=== PATIENT | male | born 1945 | race Caucasian/White ===

== ENCOUNTER 2016-09-23 09:20 | Outpatient (RCR) | payer SELFPAY | END 2016-09-25 | LOC: M CR 09:20 | PROVIDERS: ATTEND Nurse Practitioner Adult Health | DX: Z51.89 Encounter for other specified aftercare (principal); I48.0 Paroxysmal atrial fibrillation; Z95.1 Presence of aortocoronary bypass graft ==

== ENCOUNTER → 2016-11-26 | Outpatient (REF) | payer MEDICARE ==
[2016-11-26 13:17] LABS: BASO % 0.2 % (0.0-1.0); EOS # 0.2 K/mm3 (0.0-0.50); EOS % 2.3 % (0.0-3.0); LARGE UNSTAINED CELL # 0.2 K/mm3 (0.0-0.4); LARGE UNSTAINED CELL % 2.8 % (0.0-4.0); LYMPH # 1.5 K/mm3 (1.5-4.5); LYMPH % 23.4 % (24.0-44.0); MEAN CORPUSCULAR HEMOGLOBIN 32.7 pg (27.0-33.0); MEAN CORPUSCULAR HGB CONC 33.6 g/dl (32.0-36.5); MEAN CORPUSCULAR VOLUME 97.4 fl (80.0-96.0); MONO # 0.7 K/mm3 (0.0-0.8); MONO % 10.5 % (0.0-5.0); NEUTROPHILS % 60.8 % (36.0-66.0); PLATELET COUNT, AUTOMATED 250 k/mm3 (150-450); RED CELL DISTRIBUTION WIDTH 12.4 % (11.5-14.5); WHITE BLOOD COUNT 6.5 K/mm3 (4.0-10.0)
[2016-11-26 13:35] LABS: ALBUMIN/GLOBULIN RATIO 1.29 (1.00-1.93); ALKALINE PHOSPHATASE 84 U/L (45-117); ALT/SGPT 28 U/L (12-78); ANION GAP 7 MEQ/L (8-16); AST/SGOT 16 U/L (15-37); BILIRUBIN,TOTAL 0.8 MG/DL (0.2-1.0); BLOOD UREA NITROGEN 14 MG/DL (7-18); CALCIUM LEVEL 8.8 MG/DL (8.8-10.2); CARBON DIOXIDE LEVEL 31 MEQ/L (21-32); CHLORIDE LEVEL 104 MEQ/L (98-107); CHOLESTEROL LEVEL 140 MG/DL (<200); CREATININE FOR GFR 0.88 MG/DL (0.70-1.30); GLOMERULAR FILTRATION RATE > 60.0 (>42); GLUCOSE, FASTING 89 MG/DL (83-110); POTASSIUM SERUM 4.6 MEQ/L (3.5-5.1); SODIUM LEVEL 142 MEQ/L (136-145); TOTAL PROTEIN 7.1 GM/DL (6.4-8.2); TRIGLYCERIDES LEVEL 78 MG/DL (<150)
== END ==
LOC: M SFHCPLAZ 07:58
PROVIDERS: ATTEND Physician Assistant Medical
DX: E78.4 Other hyperlipidemia (principal); I10 Essential (primary) hypertension

== ENCOUNTER 2016-12-11 10:36 | Outpatient (RCR) | payer MEDICARE | END 2016-12-25 | LOC: M CR 10:36 | PROVIDERS: ATTEND Nurse Practitioner Adult Health | DX: Z51.89 Encounter for other specified aftercare (principal); Z95.1 Presence of aortocoronary bypass graft ==

== ENCOUNTER 2017-03-10 10:18 | Outpatient (RCR) | payer SELFPAY | END 2017-03-27 | LOC: M CR 10:18 | PROVIDERS: ATTEND Nurse Practitioner Adult Health | DX: Z51.89 Encounter for other specified aftercare (principal); I25.810 Atherosclerosis of coronary artery bypass graft(s) without angina pectoris ==

== ENCOUNTER 2017-06-02 12:06 | Outpatient (RCR) | payer SELFPAY | END 2017-06-27 | LOC: M CR 12:06 | DX: Z95.1 Presence of aortocoronary bypass graft (principal) ==

== ENCOUNTER 2017-10-13 09:22 | Outpatient (RCR) | payer SELFPAY | END 2017-10-25 | LOC: M CR 09:22 | DX: Z95.1 Presence of aortocoronary bypass graft (principal) ==

== ENCOUNTER → 2017-10-27 | Outpatient (REF) | payer BC, MEDICARE ==
[2017-10-27 13:31] LABS: ALBUMIN/GLOBULIN RATIO 1.18 (1.00-1.93); ALKALINE PHOSPHATASE 110 U/L (45-117); ALT/SGPT 24 U/L (12-78); ANION GAP 8 MEQ/L (8-16); AST/SGOT 12 U/L (7-37); BILIRUBIN,TOTAL 0.6 MG/DL (0.2-1.0); BLOOD UREA NITROGEN 13 MG/DL (7-18); CALCIUM LEVEL 8.7 MG/DL (8.8-10.2); CARBON DIOXIDE LEVEL 28 MEQ/L (21-32); CHLORIDE LEVEL 105 MEQ/L (98-107); CREATININE FOR GFR 0.96 MG/DL (0.70-1.30); GLOMERULAR FILTRATION RATE > 60.0 (>42); GLUCOSE, FASTING 138 MG/DL (70-100); POTASSIUM SERUM 4.1 MEQ/L (3.5-5.1); SODIUM LEVEL 141 MEQ/L (136-145); TOTAL PROTEIN 7.4 GM/DL (6.4-8.2)
== END ==
LOC: M SFHCADAM 09:13
DX: R19.7 Diarrhea, unspecified (principal)
CPT/HCPCS: 80053

== ENCOUNTER → 2017-11-29 | Outpatient (REF) | payer BC ==
[2017-11-29 12:09] LABS: BASO % 0.3 % (0.0-1.0); EOS # 0.2 10^3/uL (0.0-0.50); EOS % 2.6 % (0.0-3.0); HEMATOCRIT 42.1 % (42.0-52.0); HEMOGLOBIN 14.2 g/dl (13.5-17.5); IMMATURE GRANULOCYTE % 0.3 % (0-3.0); LYMPH # 1.3 10^3/uL (1.5-4.5); LYMPH % 19.1 % (24.0-44.0); MEAN CORPUSCULAR HEMOGLOBIN 32.3 pg (27.0-33.0); MEAN CORPUSCULAR HGB CONC 33.7 g/dl (32.0-36.5); MEAN CORPUSCULAR VOLUME 95.7 fl (80.0-96.0); MONO # 0.9 10^3/uL (0.0-0.8); MONO % 13.1 % (0.0-5.0); NEUTROPHILS # 4.2 10^3/uL (1.8-7.7); NEUTROPHILS % 64.6 % (36.0-66.0); PLATELET COUNT, AUTOMATED 209 10^3/uL (150-450); RED CELL DISTRIBUTION WIDTH 12.4 % (11.5-14.5); WHITE BLOOD COUNT 6.6 10^3/uL (4.0-10.0)
[2017-11-29 12:50] LABS: ALBUMIN 3.9 GM/DL (3.2-5.2); ALBUMIN/GLOBULIN RATIO 1.26 (1.00-1.93); ALKALINE PHOSPHATASE 86 U/L (45-117); ALT/SGPT 25 U/L (12-78); ANION GAP 6 MEQ/L (8-16); AST/SGOT 15 U/L (7-37); BILIRUBIN,TOTAL 0.8 MG/DL (0.2-1.0); BLOOD UREA NITROGEN 16 MG/DL (7-18); CARBON DIOXIDE LEVEL 31 MEQ/L (21-32); CHLORIDE LEVEL 106 MEQ/L (98-107); CHOLESTEROL LEVEL 117 MG/DL (<200); CHOLESTEROL RISK RATIO 3.656 (<5); CREATININE FOR GFR 1.02 MG/DL (0.70-1.30); GLOMERULAR FILTRATION RATE > 60.0 (>42); GLUCOSE, FASTING 100 MG/DL (70-100); HDL CHOLESTEROL 32 MG/DL (>40); LDL CHOLESTEROL 74.8 MG/DL (<100); NON-HDL-C 85 MG/DL; POTASSIUM SERUM 4.9 MEQ/L (3.5-5.1); SODIUM LEVEL 143 MEQ/L (136-145); TRIGLYCERIDES LEVEL 51 MG/DL (<150)
[2017-11-29 13:04] LABS: TOTAL 25(OH) VITAMIN D 21.1 NG/ML (30.0-100.0)
[2017-11-29 13:59] LABS: ESTIMATED AVERAGE GLUCOSE 117 MG/DL (60-110); HEMOGLOBIN A1c 5.7 %
== END ==
LOC: M SFHCADAM 10:37
DX: I25.10 Atherosclerotic heart disease of native coronary artery without angina pectoris (principal); E78.4 Other hyperlipidemia
CPT/HCPCS: 84443

== ENCOUNTER 2018-01-19 12:54 | Outpatient (RCR) | payer SELFPAY | END 2018-01-25 | LOC: M CR 12:54 | DX: Z51.89 Encounter for other specified aftercare (principal); I25.810 Atherosclerosis of coronary artery bypass graft(s) without angina pectoris ==

== ENCOUNTER → 2018-03-07 | Outpatient (REF) | payer OTHER ==
[2018-03-08 01:12] LABS: PROSTATIC SPECIFIC AG MONITOR < 0.01 NG/ML (< 4.0)
== END ==
LOC: M LABDRWAD 12:17
DX: Z85.46 Personal history of malignant neoplasm of prostate (principal)

== ENCOUNTER → 2018-03-28 | Outpatient (CLI) | payer MEDICARE, SELFPAY | LOC: M CARPUL 10:17 | DX: I25.10 Atherosclerotic heart disease of native coronary artery without angina pectoris (principal); I34.0 Nonrheumatic mitral (valve) insufficiency; I10 Essential (primary) hypertension | CPT/HCPCS: 93306 ==

== ENCOUNTER 2018-04-15 11:04 | Outpatient (RCR) | payer MEDICARE | END 2018-04-27 | LOC: M CR 11:04 | DX: Z95.1 Presence of aortocoronary bypass graft (principal) ==

== ENCOUNTER 2018-08-05 09:00 | Outpatient (RCR) | payer MEDICARE ==
[~2018-08-05 09:00] MED LIST: ASPI81TA85 PO; ATOR1TAB21 PO; DIGO0.127 PO; DIGO0.2556 IV; FAMO20TA PO; LASI20TA3 PO; METO1TAB32 PO; POTA10TA67 PO; TAB-TAB PO; XARE20TA PO
== END 2018-08-25 ==
LOC: M CR 09:00
PROVIDERS: ATTEND Nurse Practitioner Adult Health
DX: I25.810 Atherosclerosis of coronary artery bypass graft(s) without angina pectoris (principal)

== ENCOUNTER → 2018-11-25 | Outpatient (REF) | payer BC ==
[2018-11-25 13:21] LABS: BASO % 0.5 % (0.0-1.0); EOS # 0.2 10^3/uL (0.0-0.50); HEMATOCRIT 41.9 % (42.0-52.0); HEMOGLOBIN 13.7 g/dl (13.5-17.5); LYMPH # 1.2 10^3/uL (1.5-4.5); LYMPH % 17.8 % (24.0-44.0); MEAN CORPUSCULAR HEMOGLOBIN 31.9 pg (27.0-33.0); MEAN CORPUSCULAR HGB CONC 32.7 g/dl (32.0-36.5); MEAN CORPUSCULAR VOLUME 97.7 fl (80.0-96.0); MONO # 0.9 10^3/uL (0.0-0.8); MONO % 13.4 % (0.0-5.0); NEUTROPHILS # 4.3 10^3/uL (1.8-7.7); PLATELET COUNT, AUTOMATED 196 10^3/uL (150-450); RED BLOOD COUNT 4.29 10^6/uL (4.30-6.10); WHITE BLOOD COUNT 6.6 10^3/uL (4.0-10.0)
[2018-11-25 13:22] LABS: ALBUMIN 3.5 GM/DL (3.2-5.2); ALT/SGPT 41 U/L (12-78); BILIRUBIN,TOTAL 0.7 MG/DL (0.2-1.0); BLOOD UREA NITROGEN 17 MG/DL (7-18); CALCIUM LEVEL 8.9 MG/DL (8.8-10.2); CARBON DIOXIDE LEVEL 32 MEQ/L (21-32); CHLORIDE LEVEL 108 MEQ/L (98-107); CHOLESTEROL LEVEL 121 MG/DL (<200); CHOLESTEROL RISK RATIO 4.033 (<5); CREATININE FOR GFR 0.99 MG/DL (0.70-1.30); GLOMERULAR FILTRATION RATE > 60.0 (>42); GLUCOSE, FASTING 96 MG/DL (70-100); HDL CHOLESTEROL 30 MG/DL (>40); LDL CHOLESTEROL 75 MG/DL (<100); NON-HDL-C 91 MG/DL; POTASSIUM SERUM 4.9 MEQ/L (3.5-5.1); SODIUM LEVEL 144 MEQ/L (136-145); TOTAL PROTEIN 6.9 GM/DL (6.4-8.2); TRIGLYCERIDES LEVEL 81 MG/DL (<150)
[2018-11-25 13:50] LABS: TOTAL 25(OH) VITAMIN D 41.7 NG/ML (30.0-100.0)
[2018-11-25 13:51] LABS: HEMOGLOBIN A1c 6.1 %
== END ==
LOC: M SFHCADAM 07:46
PROVIDERS: ATTEND Physician Assistant Medical
DX: I25.10 Atherosclerotic heart disease of native coronary artery without angina pectoris (principal); E78.49 Other hyperlipidemia; I10 Essential (primary) hypertension

== ENCOUNTER → 2019-01-06 | Outpatient (REF) | payer BC ==
[2019-01-06 19:23] LABS: BLOOD UREA NITROGEN 16 MG/DL (7-18); CREATININE FOR GFR 1.21 MG/DL (0.70-1.30); GLOMERULAR FILTRATION RATE > 60.0 (>42)
== END ==
LOC: M LABDRWAD 19:05
PROVIDERS: ATTEND Nurse Practitioner Adult Health
DX: Z85.46 Personal history of malignant neoplasm of prostate (principal)

== ENCOUNTER 2019-01-20 11:34 | Outpatient (RCR) | payer SELFPAY | END 2019-01-25 | LOC: M CR 11:34 | PROVIDERS: ATTEND Nurse Practitioner Adult Health | DX: Z95.1 Presence of aortocoronary bypass graft (principal) ==

== ENCOUNTER 2019-04-14 10:49 | Outpatient (RCR) | payer SELFPAY | END 2019-04-27 | LOC: M CR 10:49 | PROVIDERS: ATTEND Nurse Practitioner Adult Health | DX: Z95.1 Presence of aortocoronary bypass graft (principal) ==

== ENCOUNTER 2019-07-26 09:28 | Outpatient (RCR) | payer MEDICARE | END 2019-07-28 | LOC: M CR 09:28 | PROVIDERS: ATTEND Nurse Practitioner Adult Health | DX: Z95.1 Presence of aortocoronary bypass graft (principal) ==

== ENCOUNTER 2019-08-09 14:00 | Outpatient (RCR) | payer MEDICARE | END 2019-08-26 | LOC: M CR 14:00 | PROVIDERS: ATTEND Nurse Practitioner Adult Health | DX: Z95.1 Presence of aortocoronary bypass graft (principal) ==

== ENCOUNTER 2019-11-20 19:15 | Emergency (ER) | payer MEDICARE ==
[~2019-11-20] VITALS: Ht 170.2 cm; Wt 85.7 kg
[2019-11-20] MEDS ORDERED: HYDR-3713 PO (19:27)
[2019-11-20 19:55] LABS: BASO % 0.4 % (0.0-1.0); EOS # 0.3 10^3/uL (0.0-0.5); EOS % 3.5 % (0.0-3.0); HEMOGLOBIN 13.8 g/dl (13.5-17.5); LYMPH # 1.8 10^3/uL (1.5-5.0); LYMPH % 24.6 % (24.0-44.0); MEAN CORPUSCULAR HEMOGLOBIN 32.1 pg (27.0-33.0); MEAN CORPUSCULAR HGB CONC 33.7 g/dl (32.0-36.5); MEAN CORPUSCULAR VOLUME 95.3 fl (80.0-96.0); MONO # 0.9 10^3/uL (0.0-0.8); MONO % 12.3 % (0.0-5.0); NEUTROPHILS # 4.4 10^3/uL (1.5-8.5); NEUTROPHILS % 58.8 % (36.0-66.0); PLATELET COUNT, AUTOMATED 201 10^3/uL (150-450); WHITE BLOOD COUNT 7.4 10^3/uL (4.0-10.0)
[2019-11-20 20:06] LABS: INR 2.79; PROTHROMBIN TIME 29.3 SECONDS (11.8-14.0)
[2019-11-20 20:21] LABS: BLOOD UREA NITROGEN 25 MG/DL (7-18); CALCIUM LEVEL 8.3 MG/DL (8.8-10.2); CARBON DIOXIDE LEVEL 30 MEQ/L (21-32); CHLORIDE LEVEL 104 MEQ/L (98-107); CK-MB VALUE MASS 3.6 NG/ML (<3.6); CPK CREATINE PHOSPHOKINASE 155 U/L (39-308); GLOMERULAR FILTRATION RATE > 60.0 (>42); GLUCOSE, FASTING 200 MG/DL (70-100); MB/CK RELATIVE INDEX 2.32 (< OR =4); SODIUM LEVEL 141 MEQ/L (136-145); TROPONIN I 0.02 NG/ML (< 0.10)
[2019-11-20] MEDS ORDERED: ISOVUE-370 76% 100ML VIAL As Ordered ONE (20:27)
[2019-11-20] MEDS ORDERED: NS 500 ML IV ONE (20:45)
--- NOTE | 2019-11-20 21:17 | REPVR ---
PROCEDURE INFORMATION: Exam: CT Chest With Contrast Exam date and time: 11/20/2019 8:53 PM Age: 74 years old Clinical indication: Injury or trauma; Fall; Initial encounter; Blunt trauma (contusions or hematomas); Additional info: Fall on thinner; Right anterior rib/chest wall pain TECHNIQUE: Imaging protocol: Computed tomography of the chest with intravenous contrast. 3D rendering: MIP and/or 3D reconstructed images were created by the technologist. Radiation optimization: All CT scans at this facility use at least one of these dose optimization techniques: automated exposure control; mA and/or kV adjustment per patient size (includes targeted exams where dose is matched to clinical indication); or iterative reconstruction. Contrast material: ISO 370; Contrast volume: 75 ml; Contrast route: IV; COMPARISON: [place] Chest, 1 view 04/17/2015 9:53 AM FINDINGS: Lungs: Minimal scattered atelectasis or scar. No focal infiltrates. Pleural space: Unremarkable. No pneumothorax. No pleural effusion. Heart: Status post sternotomy and CABG. Pulmonary arteries: The main pulmonary artery measures 31 mm. Aorta: The ascending thoracic aorta measures 35 mm. Lymph nodes: Unremarkable. No enlarged lymph nodes. Liver: Probable hepatic cysts measuring up to 12 mm. Gallbladder and bile ducts: The gallbladder is contracted with no stones. Spleen: Minimal splenic calcification. Bones/joints: Fractures of the right 10th rib laterally near the costochondral junction and the right 10th and 11th ribs posteriorly and probably the right 12th rib posteriorly. Soft tissues: Unremarkable. IMPRESSION: 1. Fractures of the right 10th rib laterally near the costochondral junction of the right 10th and 11th ribs posteriorly and probably the right 12th rib posteriorly. 2. Status post sternotomy and CABG. 3. Otherwise negative CT chest. No pneumothorax. Electronically signed by: Aaron Vance On 11/20/2019 21:16:58 PM
[2019-11-20 22:15] VITALS: BP 142/89
[2019-11-20] MEDS ORDERED: TYLETAB14 PO (22:17)
--- NOTE | 2019-11-21 08:00 | ECGEPIP ---
[facility] - ED Test Date: 2019-11-20 Pat Name: XAVI KNIGHT Department: Room: - Gender: Male Manager Telemarketing: [place] : 1945 Requested By: MIKEY Vallejo Order Number: [id number] Reading MD: Garrick Carrillo Measurements Intervals [place] Rate: 77 P: 60 LA: 296 QRS: 121 QRSD: 161 T: -7 QT: 405 QTc: 461 Interpretive Statements SINUS RHYTHM WITH FIRST DEGREE AV BLOCK INDETERMINATE AXIS RIGHT BUNDLE BRANCH BLOCK LEFT POSTERIOR FASCICULAR BLOCK SIMILAR TO 04/17/15 Electronically Signed on 11-21-2019 8:00:41 EDT by Garrick Carrillo
== END 2019-11-20 22:38 | disposition home or self-care (01) ==
LOC: M ED 19:15
DX: R55 Syncope and collapse (principal); S22.31XA Fracture of one rib, right side, initial encounter for closed fracture; X58.XXXA Exposure to other specified factors, initial encounter; Y92.89 Other specified places as the place of occurrence of the external cause; I45.10 Unspecified right bundle-branch block; I44.5 Left posterior fascicular block; I48.91 Unspecified atrial fibrillation; Z95.1 Presence of aortocoronary bypass graft; Z79.899 Other long term (current) drug therapy; Z79.82 Long term (current) use of aspirin; Z79.01 Long term (current) use of anticoagulants
CPT/HCPCS: 36415; 71260; 80048; 82550; 82553; 84443; 84484; 85025; 85610; 85730; 93005; 93041; 94010; 94760; 99285; Q9967

== ENCOUNTER → 2019-12-11 | Outpatient (REF) | payer BC ==
[~2019-12-11] MED LIST changes: +HYDR-3713 PO; +TYLETAB14 PO
[2019-12-11 13:32] LABS: BASO % 0.6 % (0.0-1.0); EOS # 0.3 10^3/uL (0.0-0.5); EOS % 3.8 % (0.0-3.0); HEMATOCRIT 41.4 % (42.0-52.0); HEMOGLOBIN 13.5 g/dl (13.5-17.5); LYMPH # 1.2 10^3/uL (1.5-5.0); LYMPH % 16.3 % (24.0-44.0); MEAN CORPUSCULAR HEMOGLOBIN 31.7 pg (27.0-33.0); MEAN CORPUSCULAR HGB CONC 32.6 g/dl (32.0-36.5); MEAN CORPUSCULAR VOLUME 97.2 fl (80.0-96.0); MONO # 0.9 10^3/uL (0.0-0.8); MONO % 13.2 % (0.0-5.0); NEUTROPHILS # 4.7 10^3/uL (1.5-8.5); NEUTROPHILS % 65.7 % (36.0-66.0); PLATELET COUNT, AUTOMATED 203 10^3/uL (150-450); RED BLOOD COUNT 4.26 10^6/uL (4.30-6.10); WHITE BLOOD COUNT 7.1 10^3/uL (4.0-10.0)
[2019-12-11 13:56] LABS: ALBUMIN 3.9 GM/DL (3.2-5.2); ALT/SGPT 29 U/L (12-78); BILIRUBIN,TOTAL 0.7 MG/DL (0.2-1.0); BLOOD UREA NITROGEN 16 MG/DL (7-18); CALCIUM LEVEL 8.9 MG/DL (8.8-10.2); CARBON DIOXIDE LEVEL 31 MEQ/L (21-32); CHLORIDE LEVEL 104 MEQ/L (98-107); CHOLESTEROL LEVEL 148 MG/DL (<200); CHOLESTEROL RISK RATIO 4.352 (<5); CREATININE FOR GFR 0.84 MG/DL (0.70-1.30); GLOMERULAR FILTRATION RATE > 60.0 (>42); GLUCOSE, FASTING 84 MG/DL (70-100); HDL CHOLESTEROL 34 MG/DL (>40); LDL CHOLESTEROL 101 MG/DL (<100); NON-HDL-C 114 MG/DL; POTASSIUM SERUM 4.6 MEQ/L (3.5-5.1); SODIUM LEVEL 140 MEQ/L (136-145); TRIGLYCERIDES LEVEL 66 MG/DL (<150)
[2019-12-11 14:07] LABS: MALB URINE SIEMENS < 5.0 MG/L; MAU/CREAT RATIO 4.5 MCG/MG (0.0-30.0)
[2019-12-11 14:40] LABS: HEMOGLOBIN A1c 5.9 %
== END ==
LOC: M SFHCADAM 08:01
PROVIDERS: ATTEND Physician Assistant Medical
DX: I25.10 Atherosclerotic heart disease of native coronary artery without angina pectoris (principal); I10 Essential (primary) hypertension; I48.0 Paroxysmal atrial fibrillation; E78.2 Mixed hyperlipidemia

== ENCOUNTER 2019-12-30 16:46 | Emergency (ER) | payer BC, MEDICARE ==
[~2019-12-30] VITALS: Ht 172.7 cm; Wt 86.2 kg
[~2019-12-30 16:46] MED LIST changes: -ASPI81TA85 PO; +ASPI81TA86 PO; -TAB-TAB PO; +TAB-TAB2 PO
[2019-12-30 17:44] LABS: BASO % 0.6 % (0.0-1.0); EOS # 0.2 10^3/uL (0.0-0.5); EOS % 2.8 % (0.0-3.0); HEMATOCRIT 40.6 % (42.0-52.0); HEMOGLOBIN 13.5 g/dl (13.5-17.5); LYMPH # 1.3 10^3/uL (1.5-5.0); LYMPH % 19.8 % (24.0-44.0); MEAN CORPUSCULAR HEMOGLOBIN 31.9 pg (27.0-33.0); MEAN CORPUSCULAR HGB CONC 33.3 g/dl (32.0-36.5); MONO # 0.9 10^3/uL (0.0-0.8); NEUTROPHILS % 62.5 % (36.0-66.0); PLATELET COUNT, AUTOMATED 180 10^3/uL (150-450); RED BLOOD COUNT 4.23 10^6/uL (4.30-6.10); WHITE BLOOD COUNT 6.4 10^3/uL (4.0-10.0)
[2019-12-30 18:01] LABS: INR 1.09; PARTIAL THROMBOPLASTIN TIME 32.5 SECONDS (25.0-38.4); PROTHROMBIN TIME 13.8 SECONDS (11.8-14.0)
[2019-12-30 18:15] LABS: ALT/SGPT 31 U/L (12-78); BILIRUBIN,DIRECT 0.2 MG/DL (0.0-0.2); BILIRUBIN,TOTAL 0.4 MG/DL (0.2-1.0); BLOOD UREA NITROGEN 16 MG/DL (7-18); CALCIUM LEVEL 8.8 MG/DL (8.8-10.2); CARBON DIOXIDE LEVEL 29 MEQ/L (21-32); CHLORIDE LEVEL 107 MEQ/L (98-107); CREATININE FOR GFR 0.95 MG/DL (0.70-1.30); GLOMERULAR FILTRATION RATE > 60.0 (>42); GLUCOSE, FASTING 104 MG/DL (70-100); LIPASE 123 U/L (73-393); MAGNESIUM LEVEL 2.3 MG/DL (1.8-2.4); NT-PRO BNP 380 PG/ML (<450); POTASSIUM SERUM 4.1 MEQ/L (3.5-5.1); SODIUM LEVEL 143 MEQ/L (136-145); TOTAL PROTEIN 7.3 GM/DL (6.4-8.2)
[2019-12-30] MEDS ORDERED: LABETALOL 100MG/20ML VIAL IV PRN (18:15)
[2019-12-30] MEDS ORDERED: LABETALOL 100MG/20ML VIAL IV ONE (18:15)
--- NOTE | 2019-12-30 18:20 | REP ---
Clinical: Chest pain . Comparison: 04/17/2015 . Findings: The mediastinum and cardiac silhouette are stable and within normal limits for portable technique. Cardiomegaly and sternotomy again noted. Trace left basilar atelectasis suggested. No focal consolidation. No effusion. Impression: Trace left basilar atelectasis suggested. Electronically Signed by Shawn Salinas MD 12/30/2019 06:12 P
[2019-12-30 19:15] VITALS: BP 121/68
--- NOTE | 2019-12-31 06:56 | ECGEPIP ---
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
== END 2019-12-30 19:23 | disposition home or self-care (01) ==
LOC: M ED 16:46
DX: I48.92 Unspecified atrial flutter (principal); I45.10 Unspecified right bundle-branch block; I10 Essential (primary) hypertension; Z95.1 Presence of aortocoronary bypass graft; Z79.899 Other long term (current) drug therapy; Z79.82 Long term (current) use of aspirin; Z79.01 Long term (current) use of anticoagulants

== ENCOUNTER → 2020-02-21 | Outpatient (REF) | payer MEDICARE ==
[2020-02-21 14:25] LABS: BASO % 0.5 % (0.0-1.0); EOS # 0.3 10^3/uL (0.0-0.5); EOS % 3.7 % (0.0-3.0); HEMATOCRIT 45.1 % (42.0-52.0); HEMOGLOBIN 14.6 g/dl (13.5-17.5); LYMPH # 1.5 10^3/uL (1.5-5.0); LYMPH % 20.9 % (24.0-44.0); MEAN CORPUSCULAR HEMOGLOBIN 31.6 pg (27.0-33.0); MEAN CORPUSCULAR HGB CONC 32.4 g/dl (32.0-36.5); MEAN CORPUSCULAR VOLUME 97.6 fl (80.0-96.0); MONO % 13.2 % (0.0-5.0); NEUTROPHILS # 4.5 10^3/uL (1.5-8.5); NEUTROPHILS % 61.3 % (36.0-66.0); PLATELET COUNT, AUTOMATED 221 10^3/uL (150-450); RED BLOOD COUNT 4.62 10^6/uL (4.30-6.10); WHITE BLOOD COUNT 7.3 10^3/uL (4.0-10.0)
[2020-02-21 14:40] LABS: ALT/SGPT 27 U/L (12-78); BILIRUBIN,TOTAL 0.7 MG/DL (0.2-1.0); BLOOD UREA NITROGEN 15 MG/DL (7-18); CALCIUM LEVEL 9.3 MG/DL (8.8-10.2); CARBON DIOXIDE LEVEL 30 MEQ/L (21-32); CHLORIDE LEVEL 108 MEQ/L (98-107); CHOLESTEROL LEVEL 137 MG/DL (<200); CHOLESTEROL RISK RATIO 4.029 (<5); CREATININE FOR GFR 0.96 MG/DL (0.70-1.30); GLOMERULAR FILTRATION RATE > 60.0 (>42); GLUCOSE, FASTING 99 MG/DL (70-100); HDL CHOLESTEROL 34 MG/DL (>40); LDL CHOLESTEROL 89 MG/DL (<100); MAGNESIUM LEVEL 2.4 MG/DL (1.8-2.4); NON-HDL-C 103 MG/DL; POTASSIUM SERUM 4.9 MEQ/L (3.5-5.1); SODIUM LEVEL 143 MEQ/L (136-145); TOTAL PROTEIN 7.1 GM/DL (6.4-8.2); TRIGLYCERIDES LEVEL 69 MG/DL (<150)
== END ==
LOC: M LABDRWAD 13:14
PROVIDERS: ATTEND Internal Medicine Cardiovascular Disease
DX: I48.19 Other persistent atrial fibrillation (principal); E78.00 Pure hypercholesterolemia, unspecified

== ENCOUNTER → 2020-03-06 | Outpatient (REF) | payer MEDICARE | LOC: M LABDRWAD 08:05 | PROVIDERS: ATTEND Nurse Practitioner Adult Health | DX: Z85.46 Personal history of malignant neoplasm of prostate (principal) ==

== ENCOUNTER → 2020-12-13 | Outpatient (REF) | payer MEDICARE ==
[2020-12-13 13:11] LABS: BASO % 0.5 % (0.0-1.0); EOS # 0.2 10^3/uL (0.0-0.5); HEMOGLOBIN 13.8 g/dl (13.5-17.5); LYMPH # 1.5 10^3/uL (1.5-5.0); LYMPH % 23.1 % (24.0-44.0); MEAN CORPUSCULAR HEMOGLOBIN 31.2 pg (27.0-33.0); MEAN CORPUSCULAR HGB CONC 32.1 g/dl (32.0-36.5); MEAN CORPUSCULAR VOLUME 97.3 fl (80.0-96.0); MONO % 15.6 % (2.0-8.0); NEUTROPHILS # 3.6 10^3/uL (1.5-8.5); NEUTROPHILS % 57.5 % (36.0-66.0); PLATELET COUNT, AUTOMATED 189 10^3/uL (150-450); RED BLOOD COUNT 4.42 10^6/uL (4.30-6.10); WHITE BLOOD COUNT 6.3 10^3/uL (4.0-10.0)
[2020-12-13 14:35] LABS: ALBUMIN 3.8 GM/DL (3.2-5.2); ALT/SGPT 39 U/L (12-78); BILIRUBIN,TOTAL 0.8 MG/DL (0.2-1.0); BLOOD UREA NITROGEN 13 MG/DL (7-18); CARBON DIOXIDE LEVEL 31 MEQ/L (21-32); CHLORIDE LEVEL 106 MEQ/L (98-107); CHOLESTEROL LEVEL 116 MG/DL (<200); CHOLESTEROL RISK RATIO 3.625 (<5); CREATININE FOR GFR 0.91 MG/DL (0.70-1.30); GLOMERULAR FILTRATION RATE > 60.0 (>42); GLUCOSE, FASTING 136 MG/DL (70-100); HDL CHOLESTEROL 32 MG/DL (>40); LDL CHOLESTEROL 73 MG/DL (<100); NON-HDL-C 84 MG/DL; POTASSIUM SERUM 4.6 MEQ/L (3.5-5.1); SODIUM LEVEL 140 MEQ/L (136-145); TRIGLYCERIDES LEVEL 56 MG/DL (<150)
== END ==
LOC: M LABDRWAD 12:33
PROVIDERS: ATTEND Internal Medicine Interventional Cardiology
DX: I25.10 Atherosclerotic heart disease of native coronary artery without angina pectoris (principal)

== ENCOUNTER → 2021-01-02 | Outpatient (REF) | payer BC, MEDICARE ==
[2021-01-02 13:45] LABS: HEMOGLOBIN A1c 5.8 %
== END ==
LOC: M SFHCADAM 10:34
PROVIDERS: ATTEND Physician Assistant Medical
DX: Z00.00 Encounter for general adult medical examination without abnormal findings (principal); R73.01 Impaired fasting glucose

== ENCOUNTER → 2021-02-28 | Outpatient (REF) | payer MEDICARE | LOC: M LABDRWAD 10:07 | PROVIDERS: ATTEND Nurse Practitioner Adult Health | DX: Z85.46 Personal history of malignant neoplasm of prostate (principal) ==

== ENCOUNTER → 2021-10-13 | Outpatient (CLI) | payer MEDICARE | LOC: M CARPUL 14:29 | PROVIDERS: ATTEND Internal Medicine Interventional Cardiology | DX: R06.00 Dyspnea, unspecified (principal); I10 Essential (primary) hypertension ==

== ENCOUNTER → 2021-10-17 | Outpatient (CLI) | payer MEDICARE ==
[2021-10-17 12:08] LABS: BASO % 0.5 % (0.0-1.0); EOS # 0.1 10^3/uL (0.0-0.5); EOS % 2.4 % (0.0-3.0); HEMATOCRIT 40.4 % (42.0-52.0); HEMOGLOBIN 13.3 g/dl (13.5-17.5); LYMPH # 1.2 10^3/uL (1.5-5.0); LYMPH % 20.6 % (24.0-44.0); MEAN CORPUSCULAR HEMOGLOBIN 32.5 pg (27.0-33.0); MEAN CORPUSCULAR HGB CONC 32.9 g/dl (32.0-36.5); MEAN CORPUSCULAR VOLUME 98.8 fl (80.0-96.0); MONO # 0.7 10^3/uL (0.0-0.8); MONO % 12.5 % (2.0-8.0); NEUTROPHILS # 3.7 10^3/uL (1.5-8.5); NEUTROPHILS % 63.7 % (36.0-66.0); PLATELET COUNT, AUTOMATED 180 10^3/uL (150-450); RED BLOOD COUNT 4.09 10^6/uL (4.30-6.10); WHITE BLOOD COUNT 5.7 10^3/uL (4.0-10.0)
[2021-10-17 12:16] LABS: BLOOD UREA NITROGEN 13 MG/DL (7-18); CARBON DIOXIDE LEVEL 31 MEQ/L (21-32); CHLORIDE LEVEL 109 MEQ/L (98-107); CREATININE FOR GFR 0.97 MG/DL (0.70-1.30); GLOMERULAR FILTRATION RATE > 60.0 (>42); GLUCOSE, FASTING 169 MG/DL (70-100); NT-PRO BNP 549 PG/ML (<450); POTASSIUM SERUM 4.1 MEQ/L (3.5-5.1); SODIUM LEVEL 144 MEQ/L (136-145)
== END ==
LOC: M ADAMS 07:52
PROVIDERS: ATTEND Nurse Practitioner Adult Health
DX: R06.00 Dyspnea, unspecified (principal); I10 Essential (primary) hypertension

== ENCOUNTER → 2022-02-26 | Outpatient (REF) | payer MEDICARE | LOC: M LABDRWAD 12:36 | PROVIDERS: ATTEND Nurse Practitioner Adult Health | DX: Z85.46 Personal history of malignant neoplasm of prostate (principal) ==

== ENCOUNTER → 2022-09-01 | Outpatient (REF) | payer MEDICARE | LOC: M LABDRWAD 16:08 | PROVIDERS: ATTEND Nurse Practitioner Adult Health | DX: Z85.46 Personal history of malignant neoplasm of prostate (principal) ==

== ENCOUNTER → 2022-10-06 | Outpatient (REF) | payer BC, MEDICARE ==
[2022-10-06 14:56] LABS: BASO % 0.4 % (0.0-1.0); EOS # 0.2 10^3/uL (0.0-0.5); HEMATOCRIT 41.3 % (42.0-52.0); LYMPH # 1.2 10^3/uL (1.5-5.0); LYMPH % 21.5 % (24.0-44.0); MEAN CORPUSCULAR HEMOGLOBIN 31.8 pg (27.0-33.0); MEAN CORPUSCULAR HGB CONC 31.5 g/dl (32.0-36.5); MONO # 0.8 10^3/uL (0.0-0.8); NEUTROPHILS # 3.4 10^3/uL (1.5-8.5); NEUTROPHILS % 59.9 % (36.0-66.0); PLATELET COUNT, AUTOMATED 143 10^3/uL (150-450); RED BLOOD COUNT 4.09 10^6/uL (4.30-6.10); WHITE BLOOD COUNT 5.6 10^3/uL (4.0-10.0)
[2022-10-06 15:00] LABS: ALBUMIN 3.9 G/DL (3.2-5.2); ALKALINE PHOSPHATASE 108 U/L (46-116); ALT/SGPT 31 U/L (7.0-40); AST/SGOT 30 U/L (<34); BLOOD UREA NITROGEN 13 MG/DL (9-23); CALCIUM LEVEL 9.2 MG/DL (8.3-10.6); CARBON DIOXIDE LEVEL 30 MMOL/L (20-31); CHLORIDE LEVEL 107 MMOL/L (98-107); CHOLESTEROL LEVEL 119 MG/DL (<200); CHOLESTEROL RISK RATIO 3.83 (<5); CREATININE FOR GFR 0.86 MG/DL (0.70-1.30); GLOMERULAR FILTRATION RATE > 60.0 (>42); GLUCOSE, FASTING 110 MG/DL (74-106); LDL CHOLESTEROL 79.2 MG/DL (<100); POTASSIUM SERUM 4.1 MMOL/L (3.5-5.1); SODIUM LEVEL 142 MMOL/L (136-145); TOTAL PROTEIN 6.5 G/DL (5.7-8.2); TRIGLYCERIDES LEVEL 44 MG/DL (<150)
[2022-10-06 15:01] LABS: THYROID STIMULATING HORMONE 2.289 uIU/ML (0.55-4.78); TOTAL 25(OH) VITAMIN D 77.9 NG/ML (20.0-100.0)
[2022-10-06 16:14] LABS: HEMOGLOBIN A1c 5.6 % (4.0-6.0)
== END ==
LOC: M SFHCADAM 07:39
PROVIDERS: ATTEND Physician Assistant Medical
DX: I10 Essential (primary) hypertension (principal); I25.10 Atherosclerotic heart disease of native coronary artery without angina pectoris; I48.0 Paroxysmal atrial fibrillation; E78.2 Mixed hyperlipidemia; R73.01 Impaired fasting glucose; E55.9 Vitamin D deficiency, unspecified

== ENCOUNTER → 2023-01-11 | Outpatient (REF) | payer MEDICARE ==
[2023-01-11 13:20] LABS: BLOOD UREA NITROGEN 15 MG/DL (9-23); CALCIUM LEVEL 8.7 MG/DL (8.3-10.6); CARBON DIOXIDE LEVEL 31 MMOL/L (20-31); CHLORIDE LEVEL 105 MMOL/L (98-107); CREATININE FOR GFR 0.87 MG/DL (0.70-1.30); GLOMERULAR FILTRATION RATE > 60.0 (>42); GLUCOSE, FASTING 155 MG/DL (74-106); POTASSIUM SERUM 3.8 MMOL/L (3.5-5.1); SODIUM LEVEL 144 MMOL/L (136-145)
== END ==
LOC: M LABDRWAD 12:24
PROVIDERS: ATTEND Internal Medicine Interventional Cardiology
DX: I48.11 Longstanding persistent atrial fibrillation (principal); I27.20 Pulmonary hypertension, unspecified

== ENCOUNTER → 2023-10-11 | Outpatient (REF) | payer MEDICARE ==
[2023-10-11 13:06] LABS: ALBUMIN 3.5 G/DL (3.2-5.2); ALKALINE PHOSPHATASE 135 U/L (46-116); ALT/SGPT 31 U/L (7.0-40); AST/SGOT 25 U/L (<34); BASO % 0.8 % (0.0-1.0); BILIRUBIN,TOTAL 1.2 MG/DL (0.3-1.2); BLOOD UREA NITROGEN 15 MG/DL (9-23); CARBON DIOXIDE LEVEL 31 MMOL/L (20-31); CHLORIDE LEVEL 108 MMOL/L (98-107); CHOLESTEROL LEVEL 110 MG/DL (<200); CREATININE FOR GFR 0.79 MG/DL (0.70-1.30); EOS # 0.1 10^3/uL (0.0-0.5); EOS % 2.2 % (0.0-3.0); GLOMERULAR FILTRATION RATE > 60.0 (>42); GLUCOSE, FASTING 129 MG/DL (74-106); HDL CHOLESTEROL 30.5 MG/DL (>40); HEMATOCRIT 40.8 % (42.0-52.0); HEMOGLOBIN 13.3 g/dl (13.5-17.5); LDL CHOLESTEROL 68.5 MG/DL (<100); LYMPH # 0.6 10^3/uL (1.5-5.0); LYMPH % 11.1 % (24.0-44.0); MEAN CORPUSCULAR HEMOGLOBIN 32.8 pg (27.0-33.0); MEAN CORPUSCULAR HGB CONC 32.6 g/dl (32.0-36.5); MEAN CORPUSCULAR VOLUME 100.5 fl (80.0-96.0); MONO # 0.8 10^3/uL (0.0-0.8); MONO % 16.7 % (2.0-8.0); NEUTROPHILS # 3.5 10^3/uL (1.5-8.5); NON-HDL-C 79.5 MG/DL; PLATELET COUNT, AUTOMATED 122 10^3/uL (150-450); POTASSIUM SERUM 3.9 MMOL/L (3.5-5.1); RED BLOOD COUNT 4.06 10^6/uL (4.30-6.10); SODIUM LEVEL 145 MMOL/L (136-145); TOTAL PROTEIN 6.5 G/DL (5.7-8.2); TRIGLYCERIDES LEVEL 55 MG/DL (<150)
[2023-10-11 13:07] LABS: THYROID STIMULATING HORMONE 3.532 uIU/ML (0.55-4.78); TOTAL 25(OH) VITAMIN D 73.4 NG/ML (20.0-100.0)
[2023-10-11 13:29] LABS: HEMOGLOBIN A1c 5.6 % (4.0-6.0)
== END ==
LOC: M SFHCADAM 09:08
PROVIDERS: ATTEND Physician Assistant Medical
DX: I10 Essential (primary) hypertension (principal); I48.0 Paroxysmal atrial fibrillation; E55.9 Vitamin D deficiency, unspecified; E78.2 Mixed hyperlipidemia; Z79.899 Other long term (current) drug therapy

== ENCOUNTER → 2023-12-14 | Outpatient (REF) | payer MEDICARE ==
[2023-12-14 17:03] LABS: HEMATOCRIT 39.4 % (42.0-52.0); HEMOGLOBIN 13.1 g/dl (13.5-17.5); MEAN CORPUSCULAR HEMOGLOBIN 33.5 pg (27.0-33.0); MEAN CORPUSCULAR HGB CONC 33.2 g/dl (32.0-36.5); MEAN CORPUSCULAR VOLUME 100.8 fl (80.0-96.0); PLATELET COUNT, AUTOMATED 121 10^3/uL (150-450); RED BLOOD COUNT 3.91 10^6/uL (4.30-6.10); WHITE BLOOD COUNT 6.4 10^3/uL (4.0-10.0)
[2023-12-14 17:16] LABS: INR 1.16; PARTIAL THROMBOPLASTIN TIME 30.8 SECONDS (24.8-34.2); PROTHROMBIN TIME 14.4 SECONDS (12.5-14.5)
[2023-12-14 17:28] LABS: ALBUMIN 3.6 G/DL (3.2-5.2); ALKALINE PHOSPHATASE 143 U/L (46-116); ALT/SGPT 34 U/L (7.0-40); AST/SGOT 28 U/L (<34); BILIRUBIN,TOTAL 1.1 MG/DL (0.3-1.2); BLOOD UREA NITROGEN 25 MG/DL (9-23); CALCIUM LEVEL 8.9 MG/DL (8.3-10.6); CARBON DIOXIDE LEVEL 29 MMOL/L (20-31); CHLORIDE LEVEL 108 MMOL/L (98-107); CREATININE FOR GFR 0.98 MG/DL (0.70-1.30); GLOMERULAR FILTRATION RATE > 60.0 (>42); GLUCOSE, FASTING 125 MG/DL (74-106); POTASSIUM SERUM 5.1 MMOL/L (3.5-5.1); SODIUM LEVEL 142 MMOL/L (136-145); TOTAL PROTEIN 6.4 G/DL (5.7-8.2)
== END ==
LOC: M SFHCADAM 14:30
PROVIDERS: ATTEND Physician Assistant Medical
DX: Z01.818 Encounter for other preprocedural examination (principal); N43.2 Other hydrocele; N48.89 Other specified disorders of penis; Z79.01 Long term (current) use of anticoagulants

== ENCOUNTER → 2024-01-24 | Outpatient (REF) | payer MEDICARE | LOC: M SFHCADAM 11:18 | PROVIDERS: ATTEND Physician Assistant Medical | DX: S80.861A Insect bite (nonvenomous), right lower leg, initial encounter (principal); W57.XXXA Bitten or stung by nonvenomous insect and other nonvenomous arthropods, initial encounter; Y92.9 Unspecified place or not applicable; Y93.9 Activity, unspecified; Y99.9 Unspecified external cause status ==

== ENCOUNTER → 2024-03-06 | Outpatient (REF) | payer MEDICARE ==
[2024-03-09 21:27] LABS: LYME TOTAL ANTIBODY CIA <= 0.90 Index (<=0.90)
== END ==
LOC: M SFHCADAM 08:40
PROVIDERS: ATTEND Physician Assistant Medical
DX: S80.861A Insect bite (nonvenomous), right lower leg, initial encounter (principal); Y92.9 Unspecified place or not applicable; Y93.9 Activity, unspecified; Y99.9 Unspecified external cause status; X58.XXXA Exposure to other specified factors, initial encounter